=== PATIENT | female | born 1975 | race Two or more races ===

== ENCOUNTER 2025-01-16 06:29 | Outpatient (CLI) | payer BC ==
[2025-01-16 07:37] LABS: Hematocrit 40.9 % (36.0-46.0); Hemoglobin 13.9 g/dL (12.2-16.2); Mean Corpuscular Hemoglobin 28.5 pg (28.0-32.0); Mean Corpuscular Volume 84.3 fL (80.0-100.0); Nucleated Red Blood Cells % 0.0 %
[2025-01-16 07:54] LABS: Alanine Aminotransferase 17 U/L (7-40); Alkaline Phosphatase 65 U/L (46-116); Anion Gap 9 (5-15); BUN/Creatinine Ratio 10.8 (10.0-20.0); Calcium 9.3 mg/dL (8.7-10.4); Carbon Dioxide 26 mmol/L (20-31); Chloride 107 mmol/L (98-107); Glucose 90 mg/dL (74-106); Potassium 4.3 mmol/L (3.5-5.1); Sodium 142 mmol/L (136-145); Total Protein 7.2 g/dL (5.7-8.2); Triglycerides 117 mg/dL (< 150)
[2025-01-16 07:55] LABS: Albumin 4.3 g/dL (3.2-4.8); Cholesterol 166 mg/dL (< 200); HDL Cholesterol 51 mg/dL (40-59)
[2025-01-16 07:56] LABS: Bilirubin, Total 0.8 mg/dL (0.2-1.0)
[2025-01-16 07:58] LABS: Blood Urea Nitrogen 9 mg/dL (9-23)
== END 2025-01-16 17:00 | disposition home or self-care (01) ==
LOC: LAB 06:29
PROVIDERS: ATTEND Internal Medicine
DX: Z00.01 Encounter for general adult medical examination with abnormal findings (principal)
CPT/HCPCS: 36415; 80053; 80061; 82043; 82306; 83036; 84439; 84443; 85025

== ENCOUNTER 2025-01-20 06:25 | Outpatient (CLI) | payer BC | END 2025-01-20 17:00 | disposition home or self-care (01) | LOC: LAB 06:25 | PROVIDERS: ATTEND Internal Medicine | DX: Z00.01 Encounter for general adult medical examination with abnormal findings (principal) | CPT/HCPCS: 82274 ==